=== PATIENT | female | born 1965 | race Caucasian/White ===

== ENCOUNTER → 2016-09-17 | Outpatient (CLI) | payer OTHER | LOC: MMPC 09:00 | PROVIDERS: ATTEND Obstetrics & Gynecology | DX: N95.0 Postmenopausal bleeding (principal); N94.12 Deep dyspareunia; N39.3 Stress incontinence (female) (male) | CPT/HCPCS: 99204; G0463 ==

== ENCOUNTER 2016-09-26 06:25 | Day surgery (SDC) | payer OTHER ==
[~2016-09-26 06:25] MED LIST: LIDOCAINE W/ SODIUM BICARB 0.5 ML SYR ONE; Sodium Chloride 0.9% 100 ML IV ONE
[2016-09-26 06:49] LABS: BACTERIA,URINE RARE; BILIRUBIN,URINE NEGATIVE (NEG); CLARITY,URINE CLEAR (CLEAR); COLOR,URINE YELLOW; GLUCOSE, URINE (UA) NEGATIVE (NEG); NITRATE,URINE NEGATIVE (NEG); OCCULT BLOOD,URINE SMALL (NEG); PH,URINE 6.5 (5.0-8.5); PROTEIN,URINE NEGATIVE (NEG); SQUAMOUS EPITHELIAL CELL,UR FEW; URINE SAMPLE TYPE CLEAN CATCH URINE; UROBILINOGEN,URINE 0.2 EU/dL (0.2)
[2016-09-26] MEDS ORDERED: BUPIVACAINE 0.25% W/ EPI - 10 ML VIAL ONE (07:00)
[2016-09-26] MEDS ORDERED: LIDOCAINE HCL 2 % 10 ML JELLY URO-JECT TOPICAL ONE ×2 (07:00→09:25)
[2016-09-26 07:14] LABS: HEMATOCRIT 39.6 % (37.0-47.0); HEMOGLOBIN 13.4 g/dL (12.0-16.0)
[2016-09-26] MEDS ORDERED: ROCURONIUM 10 MG/1 ML - 5 ML VIAL IVP ONE ×2 (07:37→08:23)
[2016-09-26] MEDS ORDERED: MIDAZOLAM 5 MG/1 ML ONE (07:38)
[2016-09-26] MEDS ORDERED: fentaNYL Inj 250 MCG/5 ML VIAL ONE (07:38)
[2016-09-26] MEDS ORDERED: LIDOCAINE MPF 2% - 5 ML (20 MG/1 ML) ONE (07:38)
[2016-09-26] MEDS ORDERED: HYDROmorphone 2 MG/1 ML ONE (08:22)
[2016-09-26] MEDS ORDERED: ONDANSETRON 4 MG/2 ML VIAL ONE (08:23)
[2016-09-26] MEDS ORDERED: KETOROLAC 30 MG/1 ML VIAL ONE (08:23)
[2016-09-26] MEDS ORDERED: KETAMINE 100 MG/1 ML - 5 ML ONE (08:24)
[2016-09-26] MEDS ORDERED: Opium-Belladonna 60-16.2mg 1 EACH SUPP.RECT RECTAL ONE ×2 (09:19→09:25)
[2016-09-26] MEDS ORDERED: SUGAMMADEX SODIUM 200 MG/2 ML VIAL IV ONE (09:21)
[2016-09-26] MEDS ORDERED: IBUPROFEN 800 MG TABLET PO PRN (09:43)
[2016-09-26] MEDS ORDERED: NORMAL SALINE 10 ML SYRINGE FLUSH IVP PRN (09:43)
[2016-09-26] MEDS ORDERED: Ondansetron ODT Tab 8 MG TAB PO PRN (09:43)
[2016-09-26] MEDS ORDERED: KETOROLAC 15 MG/1 ML VIAL IVP PRN (09:43)
[2016-09-26] MEDS ORDERED: HYDROcodone-APAP 7.5 MG-325 MG TABLET PO PRN (09:43)
[2016-09-26] MEDS ORDERED: Lactated Ringers 1,000 ML PRIMARY IV ONE (09:50)
--- NOTE | 2016-09-26 09:53 | OB.OP.NOTE ---
Operative Report Surgeon: Raegan Finisher Hot Strip: Ortiz Estrada MD Anesthesia Type: General Anesthesia Provider: Octavio Kendrick CRNA Surgery Date: 09/26/16 Preoperative Diagnosis: PMB/Dysmenorrhea/Dyspareunia/GEMINI Postoperative Diagnosis: Same Procedure: da Alis Hysterectomy/BSO/TVT-O Estimated Blood Loss (mL): 30 Fluids: 2800 ml Complications: None Findings at Surgery: Normal uterus, tubes, and ovaries. No visible evidence of bowel, bladder, or ureter injury. At cystoscopy, both ureters were visualized ejecting urine, indicating ureteral patency and function. The bladder dome was intact. Indications for the Procedure: PMB, GEMINI, Dysmenorrhea, Dyspareunia Description of Procedure: See dictated operative report. Plan: Routine post op care and discharge to home.
[2016-09-26 10:05] VITALS: RESP 14
[2016-09-26] MEDS ORDERED: HYDROcodone-APAP 7.5 MG-325 MG TABLET PO ONE (11:03)
[2016-09-26 12:45] VITALS: TEMP 97.2
[2016-09-26] MEDS ORDERED: DOCUSATE 100 MG CAPSULE PO SCH (21:00)
== END 2016-09-26 12:25 | disposition home or self-care (01) ==
LOC: SDSC 06:25
PROVIDERS: ATTEND Obstetrics & Gynecology
DX: N95.0 Postmenopausal bleeding (principal); N94.6 Dysmenorrhea, unspecified; N94.10 Unspecified dyspareunia; N39.3 Stress incontinence (female) (male)
CPT/HCPCS: 57288; 58552; 81001; 84703; 85014; 85018; J0694; J1885; J2704; J3010; J1170; J2001; J2250; J2405; J7050; J7120